=== PATIENT | female | born 1945 | race Caucasian/White ===

== ENCOUNTER 2024-08-29 14:28 | Outpatient (CLI) | payer MEDICARE, SELFPAY ==
--- NOTE | 2024-08-29 14:52 | ECG_ITS ---
Test Date: 2024-08-29 15:01:13 Measurements Intervals [place] Rate: 82 P: 78 CA: 158 QRS: 47 QRSD: 89 T: 61 QT: 369 QTc: 433 Interpretive Statements SINUS RHYTHM No previous ECG available for comparison Electronically Signed On 08-29-2024 15:33:19 CDT by Norma Barker M.D.
== END 2024-08-29 14:29 | disposition home or self-care (01) ==
PROVIDERS: Visit Provider Podiatrist Foot & Ankle Surgery
DX: R03.0 Elevated blood-pressure reading, without diagnosis of hypertension (principal)
CPT/HCPCS: 93005